=== PATIENT | female | born 2000 | race Caucasian/White ===

== ENCOUNTER → 2019-03-07 | Outpatient (CLI) | payer BC | LOC: BHSO 14:50 | DX: F41.1 Generalized anxiety disorder (principal) ==

== ENCOUNTER → 2019-03-15 | Outpatient (CLI) | payer BC | LOC: BHSO 08:53 | DX: F41.1 Generalized anxiety disorder (principal) ==

== ENCOUNTER → 2019-03-19 | Outpatient (CLI) | payer BC | LOC: BHSO 13:57 | DX: F41.1 Generalized anxiety disorder (principal) ==

== ENCOUNTER → 2019-03-26 | Outpatient (CLI) | payer BC | LOC: BHSO 13:57 | DX: F41.1 Generalized anxiety disorder (principal) ==

== ENCOUNTER → 2019-04-02 | Outpatient (CLI) | payer BC | LOC: BHSO 14:01 | DX: F41.1 Generalized anxiety disorder (principal) ==

== ENCOUNTER → 2019-04-09 | Outpatient (CLI) | payer BC | LOC: BHSO 13:55 | DX: F41.1 Generalized anxiety disorder (principal) ==

== ENCOUNTER → 2019-04-16 | Outpatient (CLI) | payer BC | LOC: BHSO 13:53 | DX: F41.1 Generalized anxiety disorder (principal) ==

== ENCOUNTER → 2019-04-30 | Outpatient (CLI) | payer BC | LOC: BHSO 13:58 | DX: F41.1 Generalized anxiety disorder (principal) ==

== ENCOUNTER → 2019-05-14 | Outpatient (CLI) | payer BC | LOC: BHSO 13:56 | DX: F41.1 Generalized anxiety disorder (principal) ==